=== PATIENT | male | born 1950 | race Caucasian/White ===

== ENCOUNTER → 2019-04-25 | Outpatient (CLI) | payer OTHER ==
[~2019-04-25] MED LIST: AMARYL4 MG PO; ASPIR 8181 MG PO; ASPIRIN325 PO; COLACE100 MG PO; HYDROCODONE-AP1 EAC6 PO; INVOKANA300 MG PO; LISINOPRIL10 MG PO; METFORMIN HCL500 MG PO; OXYCODONE HCL 55 MG PO; OXYCONTIN15 MG PO; PRAVACHOL40 MG PO; TOUJEO SOL300 UNIT/1 SUBQ; VICODIN 5-3001 EACH PO; XARELTO10 MG PO; XARELTO20 MG PO
== END ==
LOC: M.RAD 12:17
DX: M16.11 Unilateral primary osteoarthritis, right hip (principal); Z96.642 Presence of left artificial hip joint

== ENCOUNTER → 2020-06-03 | Outpatient (CLI) | payer MEDICARE | LOC: M.RAD 11:05 | PROVIDERS: ATTEND Family Medicine | DX: R06.02 Shortness of breath (principal) ==

== ENCOUNTER 2021-01-10 19:23 | Emergency (ER) | payer MEDICARE ==
[~2021-01-10] VITALS: Ht 167.6 cm; Wt 117.9 kg
[2021-01-10] MEDS ORDERED: NOVOLIN 70100 UNIT/1 (19:45)
[2021-01-10] MEDS ORDERED: CEPHALEXIN500 MG PO (22:35)
[2021-01-10] MEDS ORDERED: ACETAMINOPHEN-1 EAC2 PO (22:35)
[2021-01-10 22:44] VITALS: BP 141/44
== END 2021-01-10 22:44 | disposition home or self-care (01) ==
LOC: M.ERS 19:23
DX: S51.811A Laceration without foreign body of right forearm, initial encounter (principal); S46.811A Strain of other muscles, fascia and tendons at shoulder and upper arm level, right arm, initial encounter; S20.221A Contusion of right back wall of thorax, initial encounter; Z85.46 Personal history of malignant neoplasm of prostate; Z96.642 Presence of left artificial hip joint; Z88.7 Allergy status to serum and vaccine; W01.0XXA Fall on same level from slipping, tripping and stumbling without subsequent striking against object, initial encounter; Y93.89 Activity, other specified; Y92.89 Other specified places as the place of occurrence of the external cause; Y99.8 Other external cause status

== ENCOUNTER → 2021-01-22 | Outpatient (CLI) | payer MEDICARE ==
[~2021-01-22] MED LIST changes: +ACETAMINOPHEN-1 EAC2 PO; +CEPHALEXIN500 MG PO; +NOVOLIN 70100 UNIT/1
== END ==
LOC: M.RAD 14:06
PROVIDERS: ATTEND Family Medicine
DX: S22.32XA Fracture of one rib, left side, initial encounter for closed fracture (principal); R10.9 Unspecified abdominal pain; X58.XXXA Exposure to other specified factors, initial encounter; Y92.89 Other specified places as the place of occurrence of the external cause; Y93.89 Activity, other specified; Y99.8 Other external cause status

== ENCOUNTER → 2021-08-18 | Outpatient (CLI) | payer OTHER | LOC: M.LAB 08:59 | PROVIDERS: ATTEND Orthopaedic Surgery | DX: Z01.812 Encounter for preprocedural laboratory examination (principal); Z20.822 Contact with and (suspected) exposure to COVID-19 ==